=== PATIENT | male | born 1995 | race Caucasian/White ===

== ENCOUNTER 2025-06-26 08:12 | Outpatient (AMB) | payer OTHER, SELFPAY ==
--- OUTSIDE RECORDS SUMMARY | 2025-06-26 08:16 | XMS_ITS | Clinical Summary ---
Author Organization [facility] [place] [address] Care Team Providers Care Program Research Specialist Name Role Phone Unknown Primary Care Provider Unavailabl e Immunizations Immunization Administration Dates Next Due DT Pediatric 12/26/1994,03/18/1994,01/13/1994 DTaP 1993 HIB PRP-T Conjugate (ActHIB, Hiberix, OmniHib) 12/26/1994,03/18/1994,01/13/1994,1993 Hepatitis B, Unspecified Formulation 04/12/1994, 1993,1993 MMR Vaccine LIVE 12/26/1994 Polio Inactivated (IPOL) 03/18/1994,01/13/1994,0 1993 Social History Tobacco Use Types Packs/Day Years Used Date Smoking Tobacco: Never Assessed Sex and Gender Information Value Date Recorded Sex Assigned at Not on file Legal Sex Male 6:36 AM EST Gender Identity Not on file Sexual Orientation Not on file Last Filed Vital Signs Vital Sign Reading Time Taken Comments Blood Pressure 138/88 04/18/2016 10:40 AM EDT Sourced from [place] [facility]version Pulse 56 04/18/2016 10:40 AM EDT Sourced from [place] [facility] Temperature - - Respiratory Rate - - Oxygen Saturation - - Inhaled Oxygen Concentration - - Weight 85.2 kg (187 lb 12.8 oz) 04/21/2015 10:00 AM EDT Sourced from [place] Conversion Height - - Body Mass Index - - Plan of Treatment Health Maintenance Due Date Last Done Comments Tetanus/Diphtheria/Pertussis Vaccines (5 - Tdap) 2004 12/26/1994, 03/18/1994, 01/13/1994, Additional history exists HIV screen 09/15/2011 Hepatitis C Screening 09/15/2011 Covid-19 Vaccine (1 - 2024-2 6 season) 2025 Influenza (Flu) vaccine (1 o f 1 - Influenza standard series) 03/09/2025 Hepatitis B vaccine (0-59 yr s) and Risk Completed 04/12/1994, 1993, 1993 Insurance [facility] Care Teams Program Research Specialist Relationship Specialty Start Date End Date Unknown None PCP - General 06/25/17
--- OUTSIDE RECORDS SUMMARY | 2025-06-26 08:16 | XMS_ITS | Clinical Summary ---
Author Organization [facility] Address [address] [place] [address] Care Team Providers Care Underwriting Director Name Role Phone Unavailable Primary Care Provider Unavailabl e Allergies No known active allergies Medications imiquimod (ALDARA) 5 % creamIndication s:Condyloma acuminata Apply 1 packet topically 3 (three) times a week. Apply prior to bedtime and leave on for 8 hours. 1 each 1 3 Active Active Problems Problem Noted Date Diagnosed Date Venereal wart 10/19/2023 10/19/2023 Generalized anxiety disorder 10/19/202306/2024 Esophageal reflux 10/19/2023 10/19/2023 Atypical chest pain 10/19/2023 10/19/2023 Anxiety 10/19/2023 10/19/2023 Condyloma acuminata 07/12/2023 Immunizations Immunization Administration Dates Next Due DTP 09/24/1998,12/26/1994,03/18/1994 ,01/13/1994,1993 DTaP 1993 HPV Quadrivalent 12/05/2011,07/20/2011, 1 Hep A, Unspecified 09/20/2012,05/19/2011 Hep B, Unspecified 04/12/1994,1993, 994 Hib (PRP-T) 12/26/1994,03/18/1994,01/13/1994 ,1993 MMR 12/26/1994 Polio, Unspecified 03/18/1994,01/13/1994, 994 Social History Tobacco Use Types Packs/Day Years Used Date Smoking Tobacco: Never Assessed Sex and Gender Information Value Date Recorded Sex Assigned at Not on file Legal Sex Male 12:51 PM EST Gender Identity Not on file Sexual Orientation Not on file Last Filed Vital Signs Vital Sign Reading Time Taken Comments Blood Pressure 130/64 07/06/2023 8:25 AM EST Pulse 92 07/06/2023 8:25 AM EST Temperature 36.4 C (97.5 F) 07/06/2023 8:25 AM EST Respiratory Rate - - Oxygen Saturation - - Inhaled Oxygen Concentration - - Weight 103 kg (228 lb) 07/06/2023 8:25 AM EST Height - - Body Mass Index - - Plan of Treatment Health Maintenance Due Date Last Done Comments Hepatitis C Virus Screening 1993 DTaP/Tdap/Td Vaccines (6 - Tdap) 2004 09/24/1998, 12/26/1994, 03/18/1994, Additional history exists HIV Screening 2006 Pneumococcal Vaccine: Pediat kati (0-5 Years) and At-Risk Patients (6 to 49 Years) (1 of 2 - PCV) 2012 COVID-19 Vaccine (3 - Modern a risk series) 04/12/2021 03/15/2021, 02/15/2021 Influenza Vaccine 02/06/2025 Hepatitis B Vaccines Completed 04/12/1994, 1993, 1993 HPV Vaccines Completed 12/05/2011, 07/09, 05/19/2011 Insurance
--- OUTSIDE RECORDS SUMMARY | 2025-06-26 08:16 | XMS_ITS | Encounter Summary ---
Author Organization [facility] Address [address] [place] [address] Care Team Providers Care Airplane Tester Name Role Phone Cole Yanes MD Primary Care Provider Encounter Details Date Type Department Care Team (Late st Contact Info) Description 10/10/2024 Scanned Document [facility] Department of Internal Medicine [place] [address] [facility] 1st [place] [id number] Cole Yanes MD [address] [place] [address] Social History Tobacco Use Types Packs/Day Years Used Date Smoking Tobacco: Never Assessed Sex and Gender Information Value Date Recorded Sex Assigned at Not on file Legal Sex Male 12:51 PM EST Gender Identity Not on file Sexual Orientation Not on file documented as of this encounter Plan of Treatment Not on file documented as of this encounter Visit Diagnoses Not on filedocumented in this encounter Care Teams Airplane Tester Relationship Specialty Start Date End Date Cole Yanes MD [address] [place] [address] PCP - General Internal Medicine 09/04/16 06/24/25 documented as of this encounter
--- OUTSIDE RECORDS SUMMARY | 2025-06-26 08:16 | XMS_ITS | Encounter Summary ---
Author Organization [facility] Address [address] [place] [address] Care Team Providers Care Tax Examining Technician Name Role Phone Cole Yanes MD Primary Care Provider [phone] Encounter Details Date Type Department Care Team (Late st Contact Info) Description 12/05/[address] [facility] Department of Internal Medicine [place] [address] [facility] 1st [place] [phone] Cole Yanes MD [address] [place] [address] Social History Tobacco Use Types Packs/Day Years [...] on filedocumented in this encounter Care Teams Tax Examining Technician Relationship Specialty Start Date End Date Cole Yanes MD [address] [place] [address] PCP - General Internal Medicine 09/04/16 06/24/25 documented as of this encounter
--- NOTE | 2025-06-26 08:17 | A.OFFPC_ITS ---
Vital Signs 06/26/25 08:28 Height 5 ft 10.47 in Weight 219 lb 2 oz BMI 31.0 BP 137/64 Blood Pressure Location Lt brachial Position Sitting Pulse 67 Pulse Source Pulse Oximeter Temp 98.1 F Temp Source Oral Pulse Oximetry (%) 96 Oxygen Delivery Method Room Air Intake Visit Reasons: SEQUINS STRINGER - Extreme anxiety, panic attacks Accompanied by: Self / Same As Patient Allergies No Known Allergies Allergy (Verified 06/26/25 08:18) Medication List - Last Reconciled 06/26/25 by Elias Casper MD hydroxyzine HCl 50 mg PO BID lansoprazole (Prevacid SoluTab) 30 mg PO DAILY sertraline 50 mg PO DAILY Tobacco use date assessed: 06/26/25 Dental Screening Dental Screen Date: 06/26/25 Did you have a dental visit in the last 12 months?: Yes HPI HPI Comments History of Present Illness Details History of Present Illness The patient is a 29 year old male presenting to [facility] care last time he saw a physician was 6 years ago he has no significant past medical hx. Anxiety pt has a long hx of anxiety but in the past few months he feels that it is affecting his quality of life. Social History: - Employment: The patient works a [employer] where he is off on Fridays and Saturdays. Past Medical History - Gastroesophageal reflux disease: Histo ry of two endoscopies, the last at age 12. - Generalized Anxiety Disorder: Previous ly treated with cognitive behavioral therapy and various medications, including sertraline, clonazepam, gabapentin, and trazodone. - Substance Abuse: History of a brief pe riod of significant alcohol abuse around [id number]. - Hospitalizations: None reported. Health Maintenance - The patient is scheduled to undergo ood work. [facility] Medical History (Updated 06/26/25 @ 09:07 by Elias Casper MD) Hemorrhoids Anxiety Class 1 obesity Family history of anxiety disorder GERD (gastroesophageal reflux disease) Surgical History (Updated 06/26/25 @ 08:26 by Bhavya Reed CMA) H/O endoscopy Family History (Updated 06/26/25 @ 08:24 by Bhavya Reed CMA) Mother Anxiety Father Throat cancer Social History (Updated 06/26/25 @ 08:27 by Bhavya Reed CMA) Housing: House Alcohol intake: current Comment: 2-4 xs month Patient Tobacco Use Status: Never used Tobacco e-Cigarette/Vaping Use: Currently Using service: No Current occupational status: employed Cognitive needs: No Hearing needs: No Vision needs: No Questionnaire PHQ-9 Over the last 2 weeks, how often have you been bothered by any of the following problems? 1. Little interest or pleasure in doing things: nearly every day 2. Feeling down, depressed, or hopeless: nearly every day 3. Trouble falling or staying asleep, or sleeping too much: nearly every day 4. Feeling tired or having little energy: several days 5. Poor appetite or overeating: more than half the days 6. Feeling bad about yourself - or that you are a failure or have let yourself or your family down: nearly every day 7. Trouble concentrating on things, such as reading the newspaper or watching television: several days 8. Moving or speaking so slowly that other people could have noticed. Or the opposite - being so fidgety or restless that you have been moving around a lot more than usual: several days 9. Thoughts that you would be better off or of hurting yourself in some way: not at all Total score: 17 Depression Screening Interpretation: Positive Depression Screening Follow-up: Existing condition, New Medication prescribed and Follow-up Visit Requested Depression Screening Done: Yes Source: Developed by Drs. Mike Renee, Leatha Vilchis, Luc Nicole and colleagues, with an educational melania from [employer]. Thrive Questionnaire Date Thrive assessed: 06/26/25 I am a: Patient What is your living situation today?: I have a steady place to live Within the past 12 months, did the food you bought not last and you didn't have the money to get more?: Never true Within the past 12 months, did you worry whether your food would run out before you got money to buy more?: Never true Do you have trouble paying for medicines?: No Do you have trouble getting transportation to medical appointments?: No Do you have trouble paying your heating and electricity bill?: No Do you have trouble taking care of your child, family member or friend?: No Do you have trouble with day-to-day activities such as bathing, preparing meals, shopping, managing finances, etc.?: No Are you currently unemployed and looking for a job?: No Are you interested in more education?: No Please select the resources that you would like help with: None Currently or been in a relationship where the following occur: No concerns re ported THRIVE Score: 0 AUDIT C Alcohol Use Questionnaire (AUDIT-C) 1. How often do you have a drink containing alcohol?: 2-4 times a month 2. How many drinks containing alcohol do you have on a typical day when you are drinking?: 1 or 2 3. How often do you have six or more drinks on one occasion?: Less than monthly Total Score: 3 FLORENCE-7 AMB Questionnaire FLORENCE-7 Date FLORENCE - 7 assessed: 06/26/25 Feeling nervous, anxious, or on edge: 3 = Nearly every day Not being able to stop or control worryin = Nearly every day Worrying too much about different things: 3 = Nearly every day Trouble relaxin = Nearly every day Being so restless that it is hard to sit still: 3 = Nearly every day Becoming easily annoyed or irritable: 3 = Nearly every day Feeling afraid as if something awful might happen: 3 = Nearly every day Total FLORENCE-7 score (0-4 normal; 5-9 mild; 10-14 moderate; 15-21 severe): 21 Source: Developed by Drs. Mike Renee, Leatha Vilchis, Luc Nicole and colleagues, with an educational melania from [employer]. FLORENCE-7 Assessment Billing FLORENCE-7 Assessment Tool: FLORENCE-7 Assessment 63053 Review of Systems Narrative Review of Systems - Psychiatric: Reports increased anxiety, anger, frustration, and sadness. - Neurological: Reports bruxism at night and racing thoughts that interfere with sleep. - Constitutional: Reports poor sleep, averaging 2-6 hours nightly. - HEENT: Reports using Q-tips in his ears but denies itching. - Gastrointestinal: Reports history of acid reflux managed with OTC medication. Reports a new rectal 'tickle,' a metallic smell to his stool, and occasional constipation. Denies stomach pain. - Musculoskeletal: Reports feeling very tense in his neck and shoulders. - Dermatological: Reports chewing his fingers to the point where they almost bleed. 10-point ROS reviewed and negative except as noted in HPI Physical exam (Primary Care) Vital Signs: Last Vital Signs Temp 98.1 F 06/26/25 08:28 Pulse 67 06/26/25 08:28 BP 137/64 06/26/25 08:28 Pulse Ox 96 06/26/25 08:28 Oxygen Delivery Method Room Air 06/26/25 08:28 BMI result Body Mass Index 31.0 Tobacco/Smoking Status: Tobacco use Status Tobacco use date assessed 06/26/25 06/26/25 08:21 Patient Tobacco Use Status Never used Tobacco 06/26/25 08:27 e-Cigarette/Vaping Use Currently Using 06/26/25 08:27 PHQ-9: PHQ-9 Score PHQ-9: Total score 17 06/26/25 08:21 Depression Screening Interpretation: Positive Depression Screening Follow-up: Existing condition, New Medication prescribed and Follow-up Visit Requested Thrive Assessment: Date of Thrive Assessment Date Thrive assessed 06/26/25 06/26/25 08:21 Currently or been in a relationship where the following occur: No concerns reported Narrative Physical Exam General: Well-appearing, in no acute distress. Vital signs: Within normal limits. HEENT: Normocephalic, atraumatic. PERRLA, EOMI. Conjunctiva clear, sclera anicteric. Oropharynx clear, mucous membranes moist. TMs intact bilaterally, though ear canals appear slightly red, possibly due to Q-tip use. Neck: Supple, no lymphadenopathy, no thyromegaly, no JVD or carotid bruits. Cardiovascular: RRR, normal S1/S2, no murmurs, rubs, or gallops. Peripheral pulses 2+ and symmetric. No edema. Respiratory: Lungs clear to auscultation bilaterally, no wheezes, rales, or rhonchi. Normal effort. Abdomen: Soft, non-tender, non-distended. Normoactive bowel sounds. No hepatosplenomegaly, no masses. MATEO performed no external hemorrhoids appreciated small bump appreciated on internal palpation at the 12:00 MSK: Full range of motion, no joint swelling or deformity. Normal gait. Skin: Warm, dry, intact. No rashes, lesions, or pallor. Neuro: Alert and oriented x3. Cranial nerves II-XII intact. Strength 5/5 throughout. Sensation intact. Reflexes 2+ symmetric. Normal coordination and gait. Psych: Appropriate mood and affect, though patient reports significant anxiety impacting daily life. Normal judgment and insight. Office Procedures Flu Questionnaire Does the patient have a severe egg allergy?: No Does the patient have severe life threatening allergies?: No Does the patient have a fever or illness today?: No Has the patient ever had Guillain-Clatonia Syndrome?: No Has the patient ever had any past reaction to a flu shot?: No Immunizations Fluarix [id number] (PF) 45 mcg (15 mcg x 3)/0.5 mL IM syringe Performing Provider: Elias Casper MD Performing Location: [facility] Documented (not given) by: Bhavya Reed CMA on 06/26/25 08:28 Reason Not Given: Patient Refused Coding Level of Care Code New Pt Level 4 (22117) Add On Problem Visit Only Diagnoses Class 1 obesity E66.811 GERD (gastroesophageal reflux disease) K21.9 Anxiety F41.9 Hemorrhoids K64.9 Additional Codes FLORENCE-7 Assessment Billing - FLORENCE-7 Assessment Tool: FLORENCE-7 Assessment 82212 ([id number]) Assessment & Plan Assessment & Plan (1) Class 1 obesity: Code(s): E66.811 - Obesity, class 1 Category: Medical (2) GERD (gastroesophageal reflux disease): Code(s): K21.9 - Gastro-esophageal reflux disease without esophagitis Category: Medical (3) Anxiety: Code(s): F41.9 - Anxiety disorder, unspecified Category: Medical (4) Hemorrhoids: Code(s): K64.9 - Unspecified hemorrhoids Category: Medical Plan Consent The patient provided verbal consent for a digital rectal exam after the procedure was explained. Patient was informed and verbally consented to the use of an ambient scribe for clinic note documentation during this visit. Plan 1. Generalized Anxiety Disorder - Will initiate sertraline 50 mg daily. - Will prescribe hydroxyzine 50 mg as an adjunctive therapy for anxiety and insomnia. The patient was instructed to take it at night initially and may take it up to twice daily if needed. A quantity of 30 was prescribed for 15 days. - Provided the patient with the phone number for [facility] for tele-therapy. - A formal referral will be placed to this facility's behavioral health services for therapy. - Plan to follow up in 2 weeks to assess response to treatment. 2. Hemorrhoids - Due to the finding of a palpable internal abnormality on digital rectal exam and the patient's symptoms of rectal discomfort and possible bleeding, a referral to Gastroenterology will be placed for further evaluation. - The patient was advised to continue using wipes (e.g., Preparation H or wet wipes) for symptomatic relief. - Discussed increasing dietary fiber to address occasional constipation. Discussion Notes I advised the patient that he needs to complete blood work. I introduced him to a staff member who will assist him with setting up the patient portal, provide a summary of our meeting, and give him the rest of the relevant information. Patient Instructions - You will need to have blood work done. - A staff member, Samia, will help you get set up with the patient portal. - You will receive a summary of our meeting and any other necessary information. Medical Decision Making The patient requires follow-up blood work. He was directed to office staff to facilitate this and to set up access to the patient portal for communication and to review a summary of the visit. Total Time Statement 30 min Total time spent caring for the patient today includes pre-visit chart review, documentation, review of laboratory and diagnostic imaging results, medication reconciliation, medically necessary evaluation, counseling on diagnoses, care coordination, ordering appropriate tests and medications, review of tests performed by other providers, reporting test results to the patient, and communication with other healthcare providers. Orders: Orders Complete Blood Count Auto Diff Today Z13.9 - Encounter for screening, unspecified Hepatitis B Surface Antigen Today Z13.9 - Encounter for screening, unspecified Comprehensive Met. Panel Today Z13.9 - Encounter for screening, unspecified Hepatitis C Antibody Today Z13.9 - Encounter for screening, unspecified HIV Ab/Ag Today Z13.9 - Encounter for screening, unspecified Vitamin B12 and Folate Today Z13.9 - Encounter for screening, unspecified Influenza [id number] Immunization Today Z23 - Encounter for immunization Syphilis Screen Today Z13.9 - Encounter for screening, unspecified TSH reflex Free T4 Today Z13.9 - Encounter for screening, unspecified UA CC w/rflx Micro + Cult Today Z13.9 - Encounter for screening, unspecified Lipid Panel Today Z13.9 - Encounter for screening, unspecified Hemoglobin A1c Today Z13.9 - Encounter for screening, unspecified Magnesium Today Z13.9 - Encounter for screening, unspecified Hepatitis B Surface Antibody Today Z13.9 - Encounter for screening, unspecified Vitamin D 25-OH (D2 and D3) Today Z13.9 - Encounter for screening, unspecified Referrals Behavioral Health Referral F41.9 - Anxiety disorder, unspecified Gastroenterology Referral K64.9 - Unspecified hemorrhoids Medications: New hydroxyzine HCl 50 mg PO BID 30 tabs 0RF sertraline 50 mg PO DAILY 30 tabs 0RF
[2025-06-26 08:28] VITALS: BP 137/64; PULSE 67; TEMP 36.7; O2SAT 96; BMI 31.0
== END 2025-06-26 09:16 | disposition home or self-care (01) ==
LOC: HO.HMCFMS 08:13
PROVIDERS: PCP Student in an Organized Health Care Education/Training Program; Visit Provider Student in an Organized Health Care Education/Training Program
DX: E66.811 Obesity, class 1 (principal); K21.9 Gastro-esophageal reflux disease without esophagitis; F41.9 Anxiety disorder, unspecified; K64.9 Unspecified hemorrhoids; Z23 Encounter for immunization

== ENCOUNTER → 2025-06-26 08:12 | Outpatient (BNVA) | payer OTHER, SELFPAY | PROVIDERS: PCP Internal Medicine; Visit Provider Student in an Organized Health Care Education/Training Program | DX: F41.9 Anxiety disorder, unspecified (principal); K64.9 Unspecified hemorrhoids; E66.811 Obesity, class 1; Z68.31 Body mass index [BMI] 31.0-31.9, adult; K21.9 Gastro-esophageal reflux disease without esophagitis; Z71.3 Dietary counseling and surveillance | CPT/HCPCS: 90471; 96127 ==